=== PATIENT | male | born 1995 | race Hispanic/Latino ===

== ENCOUNTER 2017-10-22 12:59 | Emergency (ER) | payer MEDICAID | END 2017-10-22 14:57 | disposition home or self-care (01) | LOC: EDH 12:59 | DX: M79.605 Pain in left leg (principal) | CPT/HCPCS: 99281 ==

== ENCOUNTER 2019-02-12 04:10 | Emergency (ER) | payer MEDICAID | END 2019-02-12 04:49 | disposition home or self-care (01) | LOC: EDH 04:10 | DX: M25.562 Pain in left knee (principal) | CPT/HCPCS: 99281 ==

== ENCOUNTER → 2019-10-17 | Outpatient (CLI) | payer MEDICAID ==
[~2019-10-17] MED LIST: IOHEXOL-350 75 ML VIAL IV ONE
== END | disposition home or self-care (01) ==
LOC: RAH 08:44
PROVIDERS: ATTEND Family Medicine
DX: S49.91XA Unspecified injury of right shoulder and upper arm, initial encounter (principal); X58.XXXA Exposure to other specified factors, initial encounter; Y93.89 Activity, other specified; Y92.89 Other specified places as the place of occurrence of the external cause; Y99.8 Other external cause status
CPT/HCPCS: 73206; Q9967

== ENCOUNTER 2020-06-18 12:34 | Emergency (ER) | payer MEDICAID ==
[2020-06-18 13:04] LABS: BASOPHILS % (AUTO) 0.4 % (0.0-5.0); EOSINOPHILS % (AUTO) 0.4 % (0.0-8.0); HEMATOCRIT 44.9 % (42-54); LYMPHOCYTES % (AUTO) 33.9 % (21.0-51.0); MEAN CORPUSCULAR HEMOGLOBIN 30.5 pg (27.0-33.0); MEAN CORPUSCULAR HGB CONC 34.1 g/dL (32.0-36.0); MEAN CORPUSCULAR VOLUME 89.4 fL (79-99); MONOCYTES % (AUTO) 7.7 % (3.0-13.0); NEUTROPHILS % (AUTO) 57.5 % (40.0-77.0); PLATELET COUNT (AUTO) 220 K/uL (130-400); RED BLOOD CELL COUNT(AUTO) 5.02 MIL/uL (4.50-6.20); RED CELL DISTRIBUTION WIDTH 12.3 % (11.0-15.5); WHITE BLOOD COUNT (AUTO) 6.9 K/uL (4.8-10.8)
[2020-06-18 13:14] LABS: CREATININE 1.1 mg/dL (0.5-1.5); POTASSIUM 3.9 mmol/L (3.5-5.1)
[2020-06-18 13:20] LABS: ALBUMIN 4.3 g/dL (3.5-5.0); BILIRUBIN,TOTAL 0.5 mg/dL (0.2-1.0); TOTAL PROTEIN, SERUM 8.6 g/dL (6.0-8.3)
== END 2020-06-18 13:46 | disposition home or self-care (01) ==
LOC: EDH 12:34
DX: R19.7 Diarrhea, unspecified (principal); R10.84 Generalized abdominal pain
CPT/HCPCS: 36415; 80053; 83690; 85025; 96372; 96374

== ENCOUNTER 2020-11-16 18:26 | Emergency (ER) | payer MEDICAID ==
[2020-11-16] MEDS ORDERED: LIDOCAINE HCL-MPF 1% 2ML VIAL ONE (18:36)
[2020-11-16] MEDS ORDERED: ACETAMINOPHEN-CODEINE 300/30MG TAB ONE (18:37)
[2020-11-16] MEDS ORDERED: CEFTRIAXONE SODIUM 1 GM ONE (18:37)
== END 2020-11-16 18:57 | disposition home or self-care (01) ==
LOC: EDH 18:26
DX: H66.92 Otitis media, unspecified, left ear (principal)
CPT/HCPCS: 82948; 96372; 99283; J0696; J3490

== ENCOUNTER → 2021-01-20 | Outpatient (CLI) | payer MEDICAID ==
[~2021-01-20] MED LIST changes: +GADOTERATE MEGLUMINE 10 MMOL/20 ML VIAL IV ONE; -IOHEXOL-350 75 ML VIAL IV ONE
== END | disposition home or self-care (01) ==
LOC: RAH 11:05
PROVIDERS: ATTEND Family Medicine
DX: G89.29 Other chronic pain (principal); M25.561 Pain in right knee
CPT/HCPCS: 73723; A9575

== ENCOUNTER 2022-10-06 21:03 | Emergency (ER) | payer MEDICAID ==
[~2022-10-06] VITALS: Ht 162.6 cm; Wt 90.7 kg
[2022-10-06 21:59] LABS: BASOPHILS % (AUTO) 0.3 % (0.0-5.0); EOSINOPHILS % (AUTO) 0.8 % (0.0-8.0); HEMATOCRIT 38.6 % (42-54); LYMPHOCYTES % (AUTO) 28.7 % (21.0-51.0); MEAN CORPUSCULAR HEMOGLOBIN 30.5 pg (27.0-33.0); MEAN CORPUSCULAR HGB CONC 34.7 g/dL (32.0-36.0); MEAN CORPUSCULAR VOLUME 87.9 fL (79-99); MONOCYTES % (AUTO) 11.1 % (3.0-13.0); PLATELET COUNT (AUTO) 177 K/uL (130-400); RED BLOOD CELL COUNT(AUTO) 4.39 MIL/uL (4.50-6.20); RED CELL DISTRIBUTION WIDTH 12.1 % (11.0-15.5); WHITE BLOOD COUNT (AUTO) 7.1 K/uL (4.8-10.8)
[2022-10-06] MEDS ORDERED: 0.9%NACL 1000ML 1,000 ML IV ONE ×2 (22:00→22:30)
[2022-10-06] MEDS ORDERED: ONDANSETRON 4MG INJ IVP ONE (22:00)
[2022-10-06 22:03] LABS: APPEARANCE,URINE CLEAR (CLEAR); BILIRUBIN,URINE NEGATIVE (NEGATIVE); COLOR,URINE COLORLESS (YELLOW); GLUCOSE, URINE (UA) NEGATIVE (NEGATIVE); KETONES,URINE NEGATIVE (NEGATIVE); LEUKOCYTE ESTERASE ,URINE NEGATIVE Leu/uL (NEGATIVE); NITRATE,URINE NEGATIVE (NEGATIVE); OCCULT BLOOD,URINE NEGATIVE (NEGATIVE); PH,URINE 5.5 (5.0-8.0); PROTEIN,URINE NEGATIVE (NEGATIVE); UROBILINOGEN,URINE 0.2 mg/dL (0.2-1.0)
[2022-10-06 22:14] LABS: CREATININE 0.8 mg/dL (0.5-1.5); POTASSIUM 4.4 mmol/L (3.5-5.1)
[2022-10-06 22:19] LABS: ALBUMIN 3.5 g/dL (3.5-5.0); TOTAL PROTEIN, SERUM 7.6 g/dL (6.0-8.3)
[2022-10-06] MEDS ORDERED: IOHEXOL 350 MG/ML 100ML INFUS..BTL IV ONE (22:24)
[2022-10-06] MEDS ORDERED: DIPHENOXYLATE HCL/ATROPINE 2.5/0.025 MG TAB PO ONE (22:30)
[2022-10-06] MEDS ORDERED: DIPH1TAB PO (23:34)
[2022-10-06] MEDS ORDERED: ONDA-104 PO (23:34)
[2022-10-07 00:28] VITALS: BP 122/67
[2022-10-07] MEDS ORDERED: DIPH1TAB PO (09:46)
== END 2022-10-07 00:29 | disposition home or self-care (01) ==
LOC: EDH 21:03
DX: K52.9 Noninfective gastroenteritis and colitis, unspecified (principal); R10.31 Right lower quadrant pain; Z20.822 Contact with and (suspected) exposure to COVID-19
CPT/HCPCS: 99285; 74177; 96374; 87635; 80053; 83690; 85025; 87804 ×2; 81003; 36415; C9803; J7030 ×2; J2405; Q9967

== ENCOUNTER 2024-11-29 17:00 | Observation (INO) | payer MEDICAID ==
[~2024-11-29] VITALS: Ht 175.3 cm; Wt 89.7 kg
[~2024-11-29 17:00] MED LIST changes: +DIPH1TAB PO; -GADOTERATE MEGLUMINE 10 MMOL/20 ML VIAL IV ONE; +ONDA-104 PO
--- NOTE | 2024-11-29 17:14 | ERN ---
ED Note History of Present Illness Stated Complaint: WEAKNESS AND DEHYDRATION Chief Complaint: Weakness Time Seen by MD: 17:02 Time Seen by Midlevel: 17:02 Dictation: 29 year old male who presents to the ED for evaluation of generalized weakness onset [place] [employer] LIMOUSINE. Patient was been working outside since this morning and started to become weak and nauseated. Reports he has been doing shortness activity outside over the past few days due to occupation. Per EMS he was given 4 mg of Zofran EN route as well as 500 cc of LR. Patient reports he is feeling a little bit better but still feeling and low week. Denies chest pain, shortness of breath, abdominal pain Allergies: Coded Allergies: No Known Drug Allergies (Unverified Allergy, Unknown, 02/12/19) Home Meds Active Scripts Diphenoxylate HCl/Atropine (Lomotil Tablet) 1 Each Tablet, 2 TAB PO Q6HPRN PRN for DIARRHEA for 5 Days, #10 TAB 0 Refills Prov:RONDA CHAIDEZ MD 10/07/22 Ondansetron HCl (Ondansetron HCl) 4 Mg Tablet, 4 MG PO TIDP PRN for VOMITING, #20 TAB Prov:RONDA CHAIDEZ MD 10/06/22 Past Medical History Past Medical History: No Pertinent History Surgical History: None Family History: Negative Social History: Negative, Lives with family RN Note Reviewed/Agreed w/PFSH: Yes Review of System Dictation Constitutional: Negative for fever,chills, and weight loss Eyes: Negative for injury, pain,redness, and discharge ENT: Negative for injury,pain or swelling Cardiovascular: Negative for chest pain, palpitations, and edema Respiratory: Negative for shortness of breath, cough, and wheezing, Abdomen/GI: Negative for abdominal pain, nausea, vomiting, diarrhea, and constipation Back: Negative for injury and pain : Negative for injury, bleeding and discharge MS/Extremity: Negative for injury and deformity Skin: Negative for rash, and discoloration Neuro: Negative for headache numbness, tingling, and seizure. + Generalized weakness Psych: Negative for suicide ideation, homicidal ideation, and hallucinations Review of Systems: was completed Initial Vital Sign VS Vital Signs Date Time Temp Pulse Resp B/P (MAP) Pulse Ox O2 Delivery O2 Flow Rate FiO2 11/29/24 17:00 97.5 68 15 113/71 100 Room Air* 0 21 Physical Exam Dictation General: awake, alert, NAD Head/Face: Normocephalic, atraumatic Eyes: PERRL, EOMI, vision at baseline ENT: oral cavity clear, TMs clear, no signs of infection Neck: Trachea midline, supple, no nuchal rigidity Cardiovascular: RRR, normal S1/S2, No MRGs, no JVD Respiratory: CTAB, no respiratory distress, No rales or wheezes Abdomen: Soft, non-tender, non-distended, normal bowel sounds, no guarding or rebound. Skin: Warm, dry, normal turgor, no rash MS/Extremity: Pulses equal, no cyanosis, neurovascular intact, FROM Neuro: COAx4, GCS 15, strength 5/5, CN 2-12 intact, normal cerebellar exam, normal gait, Psych: Normal behavior, mood, and affect normal Results (Laboratory/Radiology) Laboratory/Radiology Laboratory Tests Test 11/29/24 17:30 11/29/24 18:11 White Blood Count 8.0 K/uL (4.8-10.8) Red Blood Count 4.70 MIL/uL (4.50-6.20) Hemoglobin 14.7 g/dL (14.0-18.0) Hematocrit 42.4 % (42-54) Mean Corpuscular Volume 90.2 fL (79-99) Mean Corpuscular Hemoglobin 31.3 pg (27.0-33.0) Mean Corpuscular Hemoglobin Concent 34.7 g/dL (32.0-36.0) Red Cell Distribution Width 12.1 % (11.0-15.5) Platelet Count 194 K/uL (130-400) Mean Platelet Volume 10.7 fL (7.5-10.5) H Immature Granulocyte % (Auto) 0.1 % (0-1) Neutrophils (%) (Auto) 69.9 % (40.0-77.0) Lymphocytes (%) (Auto) 22.1 % (21.0-51.0) Monocytes (%) (Auto) 7.5 % (3.0-13.0) Eosinophils (%) (Auto) 0.1 % (0.0-8.0) Basophils (%) (Auto) 0.3 % (0.0-5.0) Neutrophils # (Auto) 5.6 K/uL (1.8-7.7) Lymphocytes # (Auto) 1.8 K/uL (1.0-4.8) Monocytes # (Auto) 0.6 K/uL (0.1-1.0) Eosinophils # (Auto) 0.01 K/uL (0.00-0.70) Basophils # (Auto) 0.02 K/uL (0.00-0.20) Absolute Immature Granulocyte (auto 0.01 K/uL (0-1) Nucleated Red Blood Cells 0.0 % (0.0-0.19) Sodium Level 139 mmol/L (136-145) Potassium Level 3.5 mmol/L (3.5-5.1) Chloride Level 98 mmol/L (101-111) L Carbon Dioxide Level 26 mmol/L (21-32) Blood Urea Nitrogen 17 mg/dL (7-18) Creatinine 1.3 mg/dL (0.5-1.3) Glomerular Filtration Rate Calc 76 mL/min (>90) Random Glucose 89 mg/dL (70-105) Total Calcium 9.6 mg/dL (8.5-10.1) Total Bilirubin 0.7 mg/dL (0.2-1.0) Aspartate Amino Transf (AST/SGOT) 28 U/L (10-37) Alanine Aminotransferase (ALT/SGPT) 41 U/L (12-78) Alkaline Phosphatase 55 U/L (50-136) Total Creatine Kinase 769 U/L (21-232) *H Troponin I High Sensitivity 12 ng/L (4-75) Total Protein 8.2 g/dL (6.0-8.3) Albumin 4.3 g/dL (3.5-5.0) Thyroid Stimulating Hormone (TSH) 1.98 uIU/mL (0.36-3.74) Urine Color LIGHT-YELLOW (YELLOW) Urine Appearance CLEAR (CLEAR) Urine pH 5.5 (5.0-8.0) Urine Specific [place] 1.012 (1.001-1.031) Urine Protein NEGATIVE mg/dL (NEGATIVE) Urine Glucose (UA) NEGATIVE mg/dL (NEGATIVE) Urine Ketones 5 mg/dL (NEGATIVE) H Urine Occult Blood +- (TRACE) (NEGATIVE) H Urine Nitrate NEGATIVE (NEGATIVE) Urine Bilirubin NEGATIVE mg/dL (NEGATIVE) Urine Urobilinogen 0.2 mg/dL (0.2-1.0) Urine Leukocyte Esterase NEGATIVE Brandee/uL Urine RBC None /HPF (0-1) Urine WBC 2-5 /HPF (0-1) H Urine Bacteria None /HPF (None Seen) Urine Opiates Screen NEGATIVE (NEGATIVE) Urine Barbiturates Screen NEGATIVE (NEGATIVE) Urine Phencyclidine Screen NEGATIVE (NEGATIVE) Urine Amphetamines Screen NEGATIVE (NEGATIVE) Urine Benzodiazepines Screen NEGATIVE (NEGATIVE) Urine Cocaine Screen NEGATIVE (NEGATIVE) Urine Marijuana (THC) Screen NEGATIVE (NEGATIVE) Labs Reviewed?: Yes EKG Comment: Date:11/29/2024 Time:1714 Ventricular rate:73 GA interval:250 QRS duration:83 QT/QTc:352 EKG interpretation: Normal sinus rhythm, No dysrhythmia, no STEMI. Reviewed by ED Attending ED Course ED Course Orders Procedure Category Date Status Time Cbc With Differential LAB 11/29/24 Complete 17:08 Comprehensive LAB 11/29/24 Complete Metabolic Panel 17:08 12 Lead Ekg Tracing- EKG 11/29/24 Complete Technical 17:08 Troponin I High LAB 11/29/24 Complete Sensitivity 17:08 Creatine Kinase, Total LAB 11/29/24 Complete 17:08 Urinalysis Profile LAB 11/29/24 Complete 17:08 Thyroid Stimulating LAB 11/29/24 Complete Hormone 17:08 Drug Screen Urine LAB 11/29/24 Complete 17:08 0.9%Nacl 1000ml (Ns PHA 11/29/24 In Process 1000ml) 17:30 0.9%Nacl 1000ml (Ns PHA 11/29/24 Complete 1000ml) 19:00 Current Medications Medications (Trade) Dose Ordered Sig/Rosario Route PRN Reason Start Time Stop Time Status Last Admin Dose Admin Sodium Chloride 1,000 ml @ 0 mls/hr ONCE IV 11/29/24 17:30 11/29/24 21:30 11/29/24 17:44 Sodium Chloride 1,000 ml @ 0 mls/hr Q0M ONCE IV 11/29/24 19:00 11/29/24 19:09 DC 11/29/24 19:20 Vital Signs Date Time Temp Pulse Resp B/P (MAP) Pulse Ox O2 Delivery O2 Flow Rate FiO2 11/29/24 17:02 83 11 110/78 98 Room Air 11/29/24 17:00 97.5 68 15 113/71 100 Room Air* 0 1951 Spoke with Adam Ovalles, MARY for DR. Cortez for admission and continued IV hydration Medical Decision Making MDM MDM: Differential diagnosis: Rhabdomyolysis, acute dehydration, AMI, SANDY, electrolyte abnormality, drug use Rationale: Tests considered and ordered secondary to shared decision making include: Previous outside records reviewed: Old ER visits. Medications-Per medication reconciliation Need for hospitalization: Patient does meet criteria for hospitalization. Need for emergency major/minor surgery: No Patient's prior external medical records from other ER visits were reviewed by me as indicated. Prior testing and results from previous visits were reviewed. Prior tests were taken into account with medical decision making and resource utilization, independent historian/historians were used to obtain complete medical history. I independently interpreted the test that were performed, results were reviewed by me and considered findings on radiology if ordered. Medical management and examination interpretation discussions were had by me with other qualified healthcare professionals as indicated for the patient's care. 29 year old male who presents to the ED for evaluation of generalized weakness onset [place] [employer] LIMOUSINE. Patient was been working outside since this morning and started to become weak and nauseated. Reports he has been doing shortness activity outside over the past few days due to occupation. Per EMS he was given 4 mg of Zofran EN route as well as 500 cc of LR. Patient reports he is feeling a little bit better but still feeling and low week. Denies chest pain, shortness of breath, abdominal pain. Patient reports he was already starting to feel little bit better with the IV fluids. Patient was started on L of NS on arrival. CBC shows no leukocytosis, anemia. CMP shows no electrolyte abnormalities. No SANDY. TSH within normal limits. Troponin within normal limits. EKG showed normal sinus rhythm, no dysrhythmia, no STEMI. Creatine kinase elevated 769 consistent with a rhabdomyolysis. Patient was started on another L of NS due to elevated CK. Patient will be admitted for observation and further management. Spoke with Adam Ovalles, MARY for Dr. Cortez, who agrees with plan for admission for continued IV hydration. DX & DISP Disposition: Inpatient Decision to Admit Date: Nov 29, 2024 Decision to Admit Time: 19:39 Departure Impression: Primary Impression: Rhabdomyolysis Condition: Stable Referrals: JORDAN ALLEN MD (PCP) I have reviewed the case, and I agree with, Diagnosis and Plan YEVGENIY LUNDBERG Nov 29, 2024 17:14
[2024-11-29] MEDS: 0.9%NACL 1000ML 1,000 ML IV SCH (17:44)
[2024-11-29 17:46] LABS: BASOPHILS # (AUTO) 0.02 K/uL (0.00-0.20); BASOPHILS % (AUTO) 0.3 % (0.0-5.0); EOSINOPHILS # (AUTO) 0.01 K/uL (0.00-0.70); EOSINOPHILS % (AUTO) 0.1 % (0.0-8.0); HEMATOCRIT 42.4 % (42-54); IMMATURE GRANULOCYTE ABSOLUTE 0.01 K/uL (0-1); LYMPHOCYTES # (AUTO) 1.8 K/uL (1.0-4.8); LYMPHOCYTES % (AUTO) 22.1 % (21.0-51.0); MEAN CORPUSCULAR HEMOGLOBIN 31.3 pg (27.0-33.0); MEAN CORPUSCULAR HGB CONC 34.7 g/dL (32.0-36.0); MEAN CORPUSCULAR VOLUME 90.2 fL (79-99); MONOCYTES # (AUTO) 0.6 K/uL (0.1-1.0); MONOCYTES % (AUTO) 7.5 % (3.0-13.0); NEUTROPHILS # (AUTO) 5.6 K/uL (1.8-7.7); NEUTROPHILS % (AUTO) 69.9 % (40.0-77.0); PLATELET COUNT (AUTO) 194 K/uL (130-400); RED CELL DISTRIBUTION WIDTH 12.1 % (11.0-15.5)
[2024-11-29 18:06] LABS: CREATININE 1.3 mg/dL (0.5-1.3); POTASSIUM 3.5 mmol/L (3.5-5.1)
[2024-11-29 18:22] LABS: ALBUMIN 4.3 g/dL (3.5-5.0); BILIRUBIN,TOTAL 0.7 mg/dL (0.2-1.0); THYROID STIMULATING HORMONE 1.98 uIU/mL (0.36-3.74); TOTAL PROTEIN, SERUM 8.2 g/dL (6.0-8.3)
[2024-11-29 18:27] LABS: APPEARANCE,URINE CLEAR (CLEAR); BILIRUBIN,URINE NEGATIVE (NEGATIVE); COLOR,URINE LIGHT-YELLOW (YELLOW); GLUCOSE, URINE (UA) NEGATIVE (NEGATIVE); KETONES,URINE 5 mg/dL (NEGATIVE); LEUKOCYTE ESTERASE ,URINE NEGATIVE Leu/uL (NEGATIVE); NITRATE,URINE NEGATIVE (NEGATIVE); PH,URINE 5.5 (5.0-8.0); PROTEIN,URINE NEGATIVE (NEGATIVE); UROBILINOGEN,URINE 0.2 mg/dL (0.2-1.0)
--- NOTE | 2024-11-29 18:28 | EKG ---
[facility] Test Date: 2024-11-29 Test Time: 17:14:13 Pat Name: JERMAN WEBER Department: ED Room: 314 Gender: M Medical Support Specialist: [id number] : 1995 Requested By: YEVGENIY LUNDBERG Order Number: [id number] Reading MD: Moises Bellamy Measurements Intervals [place] Rate: 73 P: 61 NM: 250 QRS: -12 QRSD: 83 T: 27 QT: 352 QTc: 389 Interpretive Statements Sinus rhythm Prolonged NM interval Anterior infarct, old No previous ECG available for comparison Electronically Signed On 12-04-2024 07:12:07 CDT by Moises Bellamy Please click the below link to view image of tracing.
[2024-11-29 18:38] LABS: ADD UA MICROSCOPIC YES
[2024-11-29 18:39] LABS: MUCUS,URINE RARE LPF (None Seen)
[2024-11-29 19:03] LABS: AMPHET/METH SCREEN,URINE NEGATIVE (NEGATIVE); BARBITURATE SCREEN, URINE NEGATIVE (NEGATIVE); BENZODIAZEPINES SCREEN,URINE NEGATIVE (NEGATIVE); CANNABINOID SCREEN,URINE NEGATIVE (NEGATIVE); COCAINE SCREEN,URINE NEGATIVE (NEGATIVE); OPIATE SCREEN,URINE NEGATIVE (NEGATIVE); PHENCYCLIDINE SCREEN,URINE NEGATIVE (NEGATIVE)
[2024-11-29] MEDS: 0.9%NACL 1000ML 1,000 ML IV ONE (19:20)
--- NOTE | 2024-11-29 19:57 | HP ---
History of Present Illness Reason for Visit: weakness History of Present Illness Mr. Rivera is a 29-year-old male that was seen and examined today on 11/29/2024. Patient is a good historian of personal health Patient states that he came to the emergency department with a chief complaint of weakness. Onset was this morning. Duration is on and off. Character is described as not having any strength. 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 Symptoms were alleviated with rest and drinking water. Patient denies any associated dizziness, chest pain or shortness and breath. Patient denies any associated chest pain or shortness and breath. Today in the emergency department CBC unremarkable, chemistry unremarkable, creatinine kinase 769, urinalysis unremarkable, urine toxicology unremarkable. Emergency room physician recommended that patient be admitted with a diagnosis of rhabdomyolysis enter that patient can receive IV hydration patient is not currently having any difficulty with oral hydration. Past Medical History ADDITIONAL PAST MEDICAL HISTORY: [Hypertension] SOCIAL HISTORY: [Negative for smoking. Patient states he used to drink two vodka cocktails daily but quit drinking like this on 11/26/2024. Patient denies drug use. Patient lives alone. Patient has good access to health care through his insurance. Patient denies difficulty pain is bills. 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 Dyspnea, Edema, Lt Headedness, Other Gastrointestinal: No: Nausea, Vomiting, Abdominal Pain, Diarrhea, Constipation, Melena, Hematochezia, Other Genitourinary: No Dysuria, No Frequency, No Incontinence, No Hematuria, No Retention, No Other Musculoskeletal: No: other, neck pain, shoulder pain, arm pain, back pain, hand pain, leg pain, foot pain Skin: No Urticaria, No Rash, No Other Neurological: Weakness; No: Numbness, Incoordination, Change in speech, Confusion, Seizures, Other Allergies: Coded Allergies: No Known Drug Allergies (Unverified Allergy, Unknown, 02/12/19) Scheduled PRN Diphenoxylate HCl/Atropine (Lomotil Tablet), 2 TAB PO Q6HPRN PRN for DIARRHEA Ondansetron HCl (Ondansetron HCl), 4 MG PO TIDP PRN for VOMITING Exam Vital Signs Vital Signs Date Time Temp Pulse Resp B/P (MAP) Pulse Ox O2 Delivery O2 Flow Rate FiO2 11/29/24 17:02 83 11 110/78 98 Room Air 11/29/24 17:00 97.5 0 21 General Appearance: Alert, Oriented X3, Cooperative, No acute distress HEENT: Atraumatic, PERRLA, EOMI, Mucous membr. moist/pink Respiratory: Clear to auscultation, Normal air movement, NL respiratory effort Cardiovascular: Regular rate, Regular rhythm, Normal S1, Normal S2 Abdominal: Normal bowel sounds, Soft, No tenderness Extremities: No edema Skin: No significant lesion Neuro: Normal speech, Strength at 5/5 X4 ext, Sensation intact, Cranial nerves 3-12 NL Psych/Mental Status: Mental status NL, Mood NL, Thoughts/Content NL Assessment/Plan ASSESSMENT: [ Mild rhabdomyolysis, POA Hypertension] PLAN: [ Admit to medical floor as observation status. Consider early discharge home. Lactated Ringer's 100 mL/HR Repeat CK in a.m. Regular diet No need for GI prophylaxis no need for DVT prophylaxis ADVANCED CARE PLANNING 1. Which of the following were discussed? Hospice Care - Yes Therapeutic options - Yes Advance Directives - Yes -patient states he does not have any advance directives in place at this time, however his dad Quinton can make decisions for him if he becomes unable Other discussions - patient wishes to remain a full code at this time 2. Discussed with who? Patient 3. Voluntary nature of this service was explained to the patient? Yes 4. Amount of time spent - __ 16 minutes 5. Reviewed by Physician? (if this service was performed by NPP) Yes This document was generated in part using voice recognition software, occasional wrong word or sound alike substitutions may have occurred due to the inherent limitations of voice recognition software. Read the chart carefully and recognize using context, where the substitutions have occurred. Although every effort was made to edit the content, naval aircrewman avionics and typing errors may occur ATTESTATION BY PHYSICIAN I have seen and examined the patient. I reviewed the documentation, medical decision making, and treatment plan as noted by the mid-level provider above. I agree with the findings and plan of care. JANET BOWERS [facility] Nov 29, 2024 19:57
[2024-11-29] MEDS: LACTATED RINGERS 1000ML 1,000 ML IV SCH (20:16)
--- NOTE | 2024-11-29 21:23 | NUR ---
REPORT GIVEN TO NURSE JEREMIE RN VITAL SIGNS STABLE WILL CONT TO MONITOR
[2024-11-29 21:40] VITALS: BP 119/73; PULSE 68; RESP 20; TEMP 98.3
--- NOTE | 2024-11-29 21:40 | NUR ---
PATIENT ARRIVED TO FLOOR AT THIS TIME. ABLE TO AMBULATE TO BED. NO S/S OF DISTRESS NOTED. ORIENTED TO ROOM. HOSPITAL GOWN PLACED. CALL BATISTA WITHIN REACH
[2024-11-30] VITALS: BP 133/73; PULSE 64; RESP 18; TEMP 98
[2024-11-30 04:00] VITALS: BP 127/74; PULSE 64; RESP 20; TEMP 97.8
[2024-11-30 05:46] LABS: BASOPHILS # (AUTO) 0.02 K/uL (0.00-0.20); BASOPHILS % (AUTO) 0.3 % (0.0-5.0); EOSINOPHILS # (AUTO) 0.08 K/uL (0.00-0.70); EOSINOPHILS % (AUTO) 1.1 % (0.0-8.0); HEMATOCRIT 38.8 % (42-54); IMMATURE GRANULOCYTE ABSOLUTE 0.02 K/uL (0-1); LYMPHOCYTES # (AUTO) 2.7 K/uL (1.0-4.8); LYMPHOCYTES % (AUTO) 37.4 % (21.0-51.0); MEAN CORPUSCULAR HEMOGLOBIN 31.3 pg (27.0-33.0); MEAN CORPUSCULAR VOLUME 91.9 fL (79-99); MONOCYTES # (AUTO) 0.7 K/uL (0.1-1.0); MONOCYTES % (AUTO) 9.1 % (3.0-13.0); NEUTROPHILS # (AUTO) 3.8 K/uL (1.8-7.7); NEUTROPHILS % (AUTO) 51.8 % (40.0-77.0); PLATELET COUNT (AUTO) 179 K/uL (130-400); RED BLOOD CELL COUNT(AUTO) 4.22 MIL/uL (4.50-6.20); RED CELL DISTRIBUTION WIDTH 12.3 % (11.0-15.5); WHITE BLOOD COUNT (AUTO) 7.3 K/uL (4.8-10.8)
[2024-11-30 06:07] LABS: CREATININE 1.1 mg/dL (0.5-1.3); POTASSIUM 3.5 mmol/L (3.5-5.1)
[2024-11-30 07:42] VITALS: BP 115/70; PULSE 66; RESP 16; TEMP 98.1
--- NOTE | 2024-11-30 09:43 | NUR ---
Pt wanted to leave AMA This conventional mortgage underwriter was informed by CUSTOMER SUPPORT COORDINATOR staff member that the patient wanted to, "go home and is tired of waiting for the doctor". This conventional mortgage underwriter advised the patient that it is his right to refuse care but that it would be to his benefit to wait and speak with his doctor. The patient voiced that he was "feeling better" and that he didn't see the benefit in waiting any longer. After speaking with the patient at length about his concerns he agreed to stay until noon. This conventional mortgage underwriter will continue to assess and monitor and will see if the patient decides to say.
[2024-11-30 09:52] VITALS: O2SAT 100
[2024-11-30 11:35] VITALS: BP 127/72; PULSE 68; RESP 16; TEMP 98.3
--- NOTE | 2024-11-30 12:14 | NUR ---
Signs AMA The patient was witnessed yellling tin the hallway that he wants to go home. This marine underwriter notifed Dr. Calderon of the patient's request to leave AMA. Dr. calderon had no objection, the patient signs an AMA form and packed his belongings.
--- NOTE | 2024-11-30 14:44 | DS ---
Discharge Summary Hospital Course Summary: Patient is a 29-year-old male, past medical history of hypertension, came to the emergency room with a chief complaint of generalized weakness, one day duration. In the emergency room the patient looks mildly dehydrated, CBC was unremarkable, chemistry unremarkable, noted to have a CK of 769. Urinalysis unremarkable as well as urine toxicology screen. Emergency room physician recommended the patient to be admitted with a diagnosis of rhabdomyolysis, to receive IV fluids and further investigation. Patient admitted to the medical floor, supportive care with IV fluids was done. Total CK today 921. I was informed by the nurse taking care of the patient and the patient wanted to sign AMA, alert oriented x3, discussion regarding plan of action and risk of his decision discussed in detail, patient understood the information provided however decided to sign AMA. Patient was advised to return to the hospital if his condition changes. General Appearance: Alert, Oriented X3, Cooperative, No acute distress HEENT: Atraumatic, PERRLA, EOMI, Mucous membr. moist/pink Respiratory: Clear to auscultation, Normal air movement, NL respiratory effort Cardiovascular: Regular rate, Regular rhythm, Normal S1, Normal S2 Abdominal: Normal bowel sounds, Soft, No tenderness Extremities: No edema Skin: No significant lesion Neuro: Normal speech, Strength at 5/5 X4 ext, Sensation intact, Cranial nerves 3-12 NL Psych/Mental Status: Mental status NL, Mood NL, Thoughts/Content NL Assessment/Plan: Final diagnosis Mild rhabdomyolysis, POA Hypertension Discharge Instructions: Patient has signed AMA, advised to return to the hospital if his condition changes. Patient alert oriented x3. Home Medications: Active Scripts Diphenoxylate HCl/Atropine (Lomotil Tablet) 1 Each Tablet, 2 TAB PO Q6HPRN PRN for DIARRHEA for 5 Days, #10 TAB 0 Refills Prov:RONDA CHAIDEZ MD 10/07/22 Ondansetron HCl (Ondansetron HCl) 4 Mg Tablet, 4 MG PO TIDP PRN for VOMITING, #20 TAB Prov:RONDA CHAIDEZ MD 10/06/22 Time spent arranging discharge: 31-60 minutes WILBERTO YODER MD Nov 30, 2024 14:44
== END 2024-11-30 12:30 | disposition home or self-care (01) ==
LOC: EDH 17:00 → EDHIP 19:56 → 3CH 21:15
PROVIDERS: ADMIT Internal Medicine; ATTEND Internal Medicine
DX: M62.82 Rhabdomyolysis (principal); I10 Essential (primary) hypertension; E86.0 Dehydration; Z79.899 Other long term (current) drug therapy
CPT/HCPCS: 96360; 96361 ×2; 99284; 84443; 82550 ×2; 84484; 80053; 80305; 85025 ×2; 81001; 36415 ×2; 93005; 80048; G0378 ×17; J7120

== ENCOUNTER 2025-05-20 09:29 | Emergency (ER) | payer MEDICAID ==
[~2025-05-20] VITALS: Ht 175.3 cm; Wt 81.6 kg
[2025-05-20] MEDS ORDERED: KETO10TA2 PO (10:40)
--- NOTE | 2025-05-20 10:41 | ERN ---
ED Note History of Present Illness Stated Complaint: ARM INJURY Chief Complaint: Upper Extremity Pain/Injury Time Seen by MD: 10:27 Time Seen by Midlevel: 10:33 Dictation: 30-year-old male coming in with complaints of left arm pain. Patient states two days ago he was playing on refilled with his brother he has arm. Patient states it has been he feels throbbing pain to the biceps and brachial area. Patient states he does not take it anything for pain today. Denies any other injury. Allergies: Coded Allergies: No Known Drug Allergies (Unverified Allergy, Unknown, 02/12/19) Home Meds Active Scripts Ketorolac Tromethamine (Ketorolac Tromethamine) 10 Mg Tablet, 1 TAB PO Q6HPRN PRN for pain for 3 Days, #20 TAB 0 Refills Prov:PAM KNOWLES NP 05/20/25 Diphenoxylate HCl/Atropine (Lomotil Tablet) 1 Each Tablet, 2 TAB PO Q6HPRN PRN for DIARRHEA for 5 Days, #10 TAB 0 Refills Prov:RONDA CHAIDEZ MD 10/07/22 Ondansetron HCl (Ondansetron HCl) 4 Mg Tablet, 4 MG PO TIDP PRN for VOMITING, #20 TAB Prov:RONDA CHAIDEZ MD 10/06/22 Past Medical History Past Medical History: No Pertinent History Surgical History: None Family History: Negative Social History: Negative, Lives with family Review of System Dictation Constitutional: Negative for fever,chills, and weight loss Eyes: Negative for injury, pain,redness, and discharge ENT: Negative for injury,pain or swelling Cardiovascular: Negative for chest pain, palpitations, and edema Respiratory: Negative for shortness of breath, cough, and wheezing, Abdomen/GI: Negative for abdominal pain, nausea, vomiting, diarrhea, and constipation Back: Negative for injury and pain : Negative for injury, bleeding and discharge MS/Extremity: Left arm pain Skin: Negative for rash, and discoloration Neuro: Negative for headache, weakness, numbness, tingling, and seizure Psych: Negative for suicide ideation, homicidal ideation, and hallucinations Review of Systems: was completed Initial Vital Sign VS Vital Signs Date Time Temp Pulse Resp B/P (MAP) Pulse Ox O2 Delivery O2 Flow Rate FiO2 05/20/25 09:30 97.9 101 20 129/91 100 Room Air 05/20/25 10:55 0 21 Physical Exam Dictation General: awake, alert, NAD Head/Face: Normocephalic, atraumatic Eyes: PERRL, EOMI, vision at baseline ENT: oral cavity clear, TMs clear, no signs of infection Neck: Trachea midline, supple, no nuchal rigidity Cardiovascular: RRR, normal S1/S2, No MRGs, no JVD Respiratory: CTAB, no respiratory distress, No rales or wheezes Abdomen: Soft, non-tender, non-distended, normal bowel sounds, no guarding or rebound. Skin: Warm, dry, normal turgor, no rash MS/Extremity: Pulses equal, no cyanosis, neurovascular intact, FROM, pain 3/10 on range of motion to the left arm, complaining of pain to the brachial area. No obvious deformities or abrasions. Neuro: COAx4, GCS 15, strength 5/5, CN 2-12 intact, normal cerebellar exam, nor mal gait, Psych: Normal behavior, mood, and affect normal ED Course ED Course Orders Procedure Category Date Status Time Ketorolac PHA 05/20/25 Complete Tromethamine 15mg/Ml 10:37 Sling GRECIA 05/20/25 Complete 10:38 Current Medications Medications (Trade) Dose Ordered Sig/Rosario Route PRN Reason Start Time Stop Time Status Last Admin Dose Admin Ketorolac Tromethamine (toRADol) 15 mg ONCE STAT IM 05/20/25 10:37 05/20/25 10:40 DC 05/20/25 11:01 Vital Signs Date Time Temp Pulse Resp B/P (MAP) Pulse Ox O2 Delivery O2 Flow Rate FiO2 05/20/25 10:55 98.4 86 19 100/56 20 Room Air* 0 21 05/20/25 09:30 97.9 101 20 129/91 100 Room Air Medical Decision Making MDM MDM: 30-year-old male coming in with complaints of left arm pain. Patient states two days ago he was playing on refilled with his brother he has arm. Patient states it has been he feels throbbing pain to the biceps and brachial area. Patient states he does not take it anything for pain today. Denies any other injury. Patient has full range of motion to the extremity, there is no obvious deformities or abrasions. Distal pulses intact. Patient will be discharged with the anti-inflammatories in follow up outpatient with PCP. Patient educated to wrist and he be arm in the sling for the next couple of days until he feels some relief. Educated if pain continues or worsens to return back to the emergency room. Patient verbalized understanding, answered all questions. Differential diagnosis: Muscle spasm, muscle strain, Rationale: Tests considered and ordered secondary to shared decision making include: Previous outside records reviewed: Old ER visits. Risk of complication and/or morbidity or mortality of patient management: None Medications-Per medication reconciliation Need for hospitalization: Patient does not meet criteria for hospitalization. Need for emergency major/minor surgery: No There are no social concerns with this patient. Prescription drug management Prescriptions will include symptomatic care Patient's prior external medical records from other ER visits were reviewed by me as indicated. Prior testing and results from previous visits were reviewed. Prior tests were taken into account with medical decision making and resource utilization, independent historian/historians were used to obtain complete medical history. I independently interpreted the test that were performed, results were reviewed by me and considered findings on radiology if ordered. Medical management and examination interpretation discussions were had by me with other qualified healthcare professionals as indicated for the patient's care. DX & DISP Disposition: Discharge Departure Impression: Primary Impression: Arm pain Additional Impression: Muscle strain Condition: Stable Scripts Ketorolac Tromethamine (Ketorolac Tromethamine) 10 Mg Tablet 1 TAB PO Q6HPRN PRN for pain for 3 Days, #20 TAB 0 Refills Prov: PAM KNOWLES NP 05/20/25 Additional Instructions: Keep arm in sling for the next couple of days. Use ice as needed. Take medica tions as prescribed isn't mix with a any alcohol. If pain continues or worsens to return to the emergency room otherwise follow up with your PCP in 1-2 days. Referrals: JORDAN ALLEN MD (PCP) Time of Disposition: 10:39 I have reviewed the case, and I agree with, Diagnosis and Plan PAM KNOWLES NP May 20, 2025 10:41 CHRISSIE FOLEY DO May 20, 2025 17:54
[2025-05-20 10:55] VITALS: BP 100/56; PULSE 86; RESP 19; TEMP 98.5; O2SAT 20
== END 2025-05-20 11:04 | disposition home or self-care (01) ==
LOC: EDH 09:29
DX: S46.912A Strain of unspecified muscle, fascia and tendon at shoulder and upper arm level, left arm, initial encounter (principal); Z79.899 Other long term (current) drug therapy; X58.XXXA Exposure to other specified factors, initial encounter; Y93.89 Activity, other specified; Y92.89 Other specified places as the place of occurrence of the external cause; Y99.8 Other external cause status
CPT/HCPCS: 99283; 96372; J1885

== ENCOUNTER 2025-05-22 15:59 | Emergency (ER) | payer MEDICAID ==
[~2025-05-22] VITALS: Ht 175.3 cm; Wt 80.7 kg
[2025-05-22 17:35] VITALS: BP 112/70; PULSE 72; RESP 16; TEMP 98; O2SAT 96
== END 2025-05-22 18:20 | disposition home or self-care (01) ==
LOC: EDH 15:59
DX: M79.602 Pain in left arm (principal)
CPT/HCPCS: 99281